=== PATIENT | female | born 1955 | race Caucasian/White ===

== ENCOUNTER 2018-08-05 22:44 | Inpatient (IN) | payer MEDICARE, MEDICAID ==
[2018-08-05 23:22] LABS: ADD MAN DIFF? NO
[2018-08-05 23:24] LABS: BASOPHILS % 0.4 % (0.0-2.0); EOSINOPHILS # 0.1 10^3/ul (0.0-0.5); HEMATOCRIT 30.8 % (37.0-47.0); HEMOGLOBIN 10.3 g/dl (12.0-16.0); LYMPHOCYTES % 20.2 % (15.0-51.0); MEAN CORPUSCULAR HEMOGLOBIN 29.5 pg (29.0-33.0); MEAN CORPUSCULAR HGB CONC 33.4 g/dl (32.0-37.0); MEAN CORPUSCULAR VOLUME 88.3 fl (82.0-101.0); MEAN PLATELET VOLUME 9.7 fl (7.4-10.4); MONOCYTE # 0.3 10^3/ul (0.3-0.9); MONOCYTES % 5.9 % (0.0-11.0); NEUTROPHIL # 3.6 10^3/ul (1.6-7.5); NEUTROPHILS % 71.1 % (39.0-77.0); PLATELET COUNT 238 10^3/UL (140-415); RED BLOOD COUNT 3.49 10^6/ul (4.20-5.40); RED CELL DISTRIBUTION WIDTH 12.8 % (11.5-14.5)
[2018-08-05 23:24] LABS: WHITE BLOOD COUNT 5.1 10^3/ul (4.8-10.8)
[2018-08-05] MEDS: SOD CHLORIDE 0.9% 500 ML IV (23:32)
[2018-08-05 23:41] LABS: ALANINE AMINOTRANSFERASE 34 IU/L (13-69); ALBUMIN 3.8 g/dl (3.3-4.9); ALBUMIN/GLOBULIN RATIO 0.92; ALKALINE PHOSPHATASE 118 IU/L (42-121); ANION GAP 16 (8-16); ASPARTATE AMINO TRANSFERASE 34 IU/L (15-46); BILIRUBIN,INDIRECT 0.3 mg/dl (0-1.1); BILIRUBIN,TOTAL 0.3 mg/dl (0.2-1.3); BLOOD UREA NITROGEN 9 mg/dl (7-20); CALCIUM 9.2 mg/dl (8.4-10.2); CARBON DIOXIDE 24 mmol/L (21-31); CHLORIDE 95 mmol/L (97-110); CREATININE 0.59 mg/dl (0.44-1.00); GLUCOSE 169 mg/dl (70-220); POTASSIUM 4.2 mmol/L (3.5-5.1); SODIUM 131 mmol/L (135-144); TOTAL PROTEIN 7.9 g/dl (6.1-8.1)
[2018-08-05 23:44] LABS: LIPASE < 10 U/L (23-300)
[2018-08-05 23:53] LABS: B-TYPE NATRIURETIC PEPTIDE 55 PG/ML (0-125); TROPONIN-I < 0.012 ng/ml (0.000-0.120)
[2018-08-06 00:27] LABS: INR 0.92; PARTIAL THROMBOPLASTIN TIME 30.6 Sec (25.0-35.0); PROTIME 12.4 Sec (11.9-14.9)
[2018-08-06] MEDS ORDERED: ACETAMINOPHEN 325 MG TAB PO ×2 (01:00→03:00)
[2018-08-06] MEDS ORDERED: NITROGLYCERIN (SL) 0.4 MG TAB SL (01:00)
[2018-08-06] MEDS ORDERED: ONDANSETRON 4 MG INJ IV (01:00)
[2018-08-06] MEDS ORDERED: BISACODYL (EC) 5 MG TAB PO (01:00)
[2018-08-06] MEDS ORDERED: morphine 2 MG INJ IV (01:00)
[2018-08-06] MEDS ORDERED: DOCUSATE SODIUM 100 MG CAP PO (01:00)
[2018-08-06] MEDS ORDERED: NACL 0.9% 3 ML SYG IV (01:00)
[2018-08-06 01:20] LABS: D-DIMER 1077.44 ng/ml (<460)
[2018-08-06] MEDS: LORAZEPAM 0.5 MG TAB PO (03:04)
[2018-08-06] MEDS: PANTOPRAZOLE (EC) 40 MG TAB PO (05:05)
[2018-08-06 05:52] LABS: ADD MAN DIFF? NO
[2018-08-06 06:02] LABS: BASOPHILS % 0.5 % (0.0-2.0); EOSINOPHILS # 0.1 10^3/ul (0.0-0.5); EOSINOPHILS % 2.2 % (0.0-7.0); HEMATOCRIT 27.9 % (37.0-47.0); HEMOGLOBIN 9.4 g/dl (12.0-16.0); LYMPHOCYTES # 0.9 10^3/ul (0.8-2.9); LYMPHOCYTES % 22.7 % (15.0-51.0); MEAN CORPUSCULAR HEMOGLOBIN 29.7 pg (29.0-33.0); MEAN CORPUSCULAR HGB CONC 33.7 g/dl (32.0-37.0); MEAN PLATELET VOLUME 9.6 fl (7.4-10.4); MONOCYTE # 0.3 10^3/ul (0.3-0.9); MONOCYTES % 6.3 % (0.0-11.0); NEUTROPHIL # 2.8 10^3/ul (1.6-7.5); NEUTROPHILS % 68.1 % (39.0-77.0); PLATELET COUNT 206 10^3/UL (140-415); RED BLOOD COUNT 3.17 10^6/ul (4.20-5.40)
[2018-08-06 06:02] LABS: WHITE BLOOD COUNT 4.2 10^3/ul (4.8-10.8)
[2018-08-06 06:47] LABS: CREATINE KINASE 62 IU/L (23-200)
[2018-08-06 06:55] LABS: TROPONIN-I < 0.012 ng/ml (0.000-0.120)
[2018-08-06 06:57] LABS: CK-MB 1.24 ng/ml (0.0-2.4)
[2018-08-06 07:16] LABS: ALANINE AMINOTRANSFERASE 30 IU/L (13-69); ALBUMIN 3.1 g/dl (3.3-4.9); ALBUMIN/GLOBULIN RATIO 0.88; ALKALINE PHOSPHATASE 101 IU/L (42-121); ANION GAP 12 (8-16); ASPARTATE AMINO TRANSFERASE 32 IU/L (15-46); BILIRUBIN,INDIRECT 0.2 mg/dl (0-1.1); BILIRUBIN,TOTAL 0.2 mg/dl (0.2-1.3); BLOOD UREA NITROGEN 8 mg/dl (7-20); CALCIUM 8.8 mg/dl (8.4-10.2); CARBON DIOXIDE 25 mmol/L (21-31); CHLORIDE 101 mmol/L (97-110); CHOL/HDL RATIO 2.9 RATIO; CHOLESTEROL 102 mg/dl (100-200); CREATININE 0.47 mg/dl (0.44-1.00); GLUCOSE 92 mg/dl (70-220); HDL CHOLESTEROL 35 mg/dl (35-98); LDL CHOLESTEROL,CALCULATED 56 mg/dl; SODIUM 134 mmol/L (135-144); TOTAL PROTEIN 6.6 g/dl (6.1-8.1); TRIGLYCERIDES 53 mg/dl (0-149)
[2018-08-06] MEDS: LOSARTAN 50 MG TAB PO (09:00)
[2018-08-06] MEDS: ASPIRIN (EC) 81 MG TAB PO (09:19)
[2018-08-06 12:02] LABS: CK-MB 1.26 ng/ml (0.0-2.4); TROPONIN-I < 0.012 ng/ml (0.000-0.120)
[2018-08-06 12:22] LABS: CREATINE KINASE 63 IU/L (23-200)
[2018-08-06 17:41] LABS: CREATINE KINASE 54 IU/L (23-200)
[2018-08-06 17:54] LABS: CK INDEX 1.9; CK-MB 1.03 ng/ml (0.0-2.4); TROPONIN-I < 0.012 ng/ml (0.000-0.120)
[2018-08-06] MEDS ORDERED: morphine LIQ (10 MG/5 ML) CUP PO (18:30)
== END 2018-08-06 19:56 | disposition left against medical advice (07) | DRG 313 ==
LOC: E/R 22:44 → TEL 08-06 00:13
DX: R07.9 Chest pain, unspecified (principal); R29.810 Facial weakness; Z86.73 Personal history of transient ischemic attack (TIA), and cerebral infarction without residual deficits; F41.9 Anxiety disorder, unspecified; I10 Essential (primary) hypertension; E11.9 Type 2 diabetes mellitus without complications; R20.2 Paresthesia of skin
CPT/HCPCS: 36415; 70551; 71045; 80053; 80061; 82550; 82553; 83036; 83690; 83880; 84443; 84484; 85025; 85378; 85610; 85730; 93005; 93306; 99285-25